=== PATIENT | male | born 1960 | race Caucasian/White ===

== ENCOUNTER → 2017-06-27 | Day surgery (SDC) | payer BC ==
[~2017-06-27] MED LIST: ACETAMINOPHEN PO; ALLEGRA PO; AMARYL PO; DIOVAN; ERYTHROMYC3.5 GM OPT OD; LANTUS100 U/ML SUBQ; METFORMIN HCL1000 M1 PO; NORVASC PO; PROTONIX PO; VITAMIN C500 M6 PO
--- NOTE | ~2017-06-27 | OR ---
Unit #: [id number] #: [id number] Patient: CHANTEL SIEGEL [id number] [address] [address] [id number] MR#: [id number] NAME: CHANTEL SIEGEL ROOM: Date of Procedure: 06/27/2017 Admission Date: 06/27/2017 Surgeon: Jaret Monsivais M.D. : 1960 Attending Physician: Jaret Monsivais M.D. Primary Care Physician: Hay Marcum M.D. OPERATIVE REPORT PROCEDURES PERFORMED Colonoscopy with biopsy and colonoscopy with snare polypectomy. INDICATIONS FOR PROCEDURE Persistent diarrhea going on for 6 weeks, significant weight loss over 20 pounds, undergoing evaluation with colonoscopy. MEDICATIONS Monitored anesthesia. POSTOPERATIVE FINDINGS 1. Colonoscopy completed to cecum and terminal ileum. No active colitis was seen. Biopsies taken randomly. 2. Terminal ileum was normal. 3. Small 5 mm polyp, rectum, snared and sent for histopathology. 4. Internal hemorrhoids. PLAN Follow up on pathology report. Further recommendations to follow. DESCRIPTION OF PROCEDURE The patient was explained of the procedure, risks, and benefits along with risks and benefits of anesthesia. He was brought to the endoscopy room. Propofol anesthesia was given. Rectal exam was done, which was normal. Colonoscope was lubricated, passed up the rectum, advanced under direct vision all the way to the cecum. Cecum was identified by ileocecal valve and appendiceal orifice. Terminal ileum was intubated, shows normal mucosa. Random biopsies were taken from otherwise normal colonic mucosa. Rectal polyp was snared and sent for histopathology. I retroflexed in the rectum, internal hemorrhoids noted. Gently, the scope was pulled out. He tolerated it well. No major complications were seen. Dictated by... Caron Castillo/ru TD: 06/27/2017 13:40 JOB #: [id number] Unit #: [id number] #: [id number] Patient: CHANTEL SIEGEL OPERATIVE REPORT Page 1 of 1 X Jaret Monsivais MD PROCEDURE OPERATIVE NOTE
[2017-06-27 09:53] LABS: BASOPHIL% 0.8 % (0-2.5); EOSINOPHIL# 0.3 X10e3 (0-0.7); EOSINOPHIL% 4.4 % (0.0-7.0); HEMATOCRIT 46.1 % (38.0-50.0); LYMPHOCYTE# 1.5 X10e3 (1.0-3.5); LYMPHOCYTE% 25.7 % (17.0-45.0); MEAN CELL VOLUME 93.7 FL (83-96); MEAN CORPUSCULAR HEMOGLOBIN 32.6 PG (28-34); MEAN CORPUSCULAR HGB CONC 34.8 g/dL (30-36); MEAN PLATELET VOLUME 8.8 FL (6.5-11.5); MONOCYTE# 0.5 X10e3 (0-1.0); NEUTROPHIL# 3.6 X10e3 (1.5-7.1); NEUTROPHIL% 61.1 % (40-75); PLATELET COUNT 176 X10e3 (140-420); RED BLOOD COUNT 4.91 X10e (3.90-5.60); RED CELL DISTRIBUTION WIDTH 12.7 % (11.0-15.5); WHITE BLOOD COUNT 5.9 X10e3 (4.0-10.5)
[2017-06-27 09:54] LABS: DIFF IND NO
[2017-06-27 10:17] LABS: ALBUMIN SERUM 3.8 g/dL (3.5-5.0); BILIRUBIN,TOTAL 0.7 mg/dL (0.2-2.0); GLOM FILT RATE Estimated 83.2 mL/min (>60); POTASSIUM 3.6 mmol/L (3.5-5.1); PROTEIN TOTAL SERUM 6.6 g/dL (6.0-8.3)
== END | disposition home or self-care (01) ==
LOC: COPS 06:52
PROVIDERS: Internal Medicine
DX: K52.9 Noninfective gastroenteritis and colitis, unspecified (principal); D12.8 Benign neoplasm of rectum; K64.8 Other hemorrhoids; E11.9 Type 2 diabetes mellitus without complications; I10 Essential (primary) hypertension; K21.9 Gastro-esophageal reflux disease without esophagitis; F17.210 Nicotine dependence, cigarettes, uncomplicated; Z88.8 Allergy status to other drugs, medicaments and biological substances; Z79.4 Long term (current) use of insulin; Z79.899 Other long term (current) drug therapy; Z98.890 Other specified postprocedural states
CPT/HCPCS: 80053; 82947; 85025; 86140; 88305; J2250